=== PATIENT | female | born 1940 | race Caucasian/White ===

== ENCOUNTER 2020-09-02 13:07 | Emergency (ER) | payer OTHER ==
[~2020-09-02] VITALS: Ht 165.1 cm; Wt 65.8 kg
[2020-09-02] MEDS ORDERED: Norco 5-325 Ta1 EACH PO (15:23)
== END 2020-09-02 15:42 | disposition home or self-care (01) ==
LOC: ER 13:07
DX: S52.571A Other intraarticular fracture of lower end of right radius, initial encounter for closed fracture (principal); W01.10XA Fall on same level from slipping, tripping and stumbling with subsequent striking against unspecified object, initial encounter
CPT/HCPCS: 29125; 73110; 99283-25; A9270